=== PATIENT | female | born 2000 | race Caucasian/White ===

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

== ENCOUNTER 2022-06-14 15:03 | Outpatient (CLI) | payer BC, SELFPAY | END 2022-06-14 15:04 | disposition home or self-care (01) | PROVIDERS: PCP Family Medicine; Visit Provider Registered Nurse | DX: N94.6 Dysmenorrhea, unspecified (principal) | CPT/HCPCS: 84443 ==

== ENCOUNTER 2023-05-01 11:28 | Outpatient (CLI) | payer BC, SELFPAY ==
[2023-05-01 14:05] LABS: Chlamydia DNA Amplified* NOT DETECTED (No Detected); GC DNA Amplified* NOT DETECTED (No Detected)
== END 2023-05-01 11:29 | disposition home or self-care (01) ==
PROVIDERS: PCP Family Medicine; Visit Provider Registered Nurse
DX: Z11.3 Encounter for screening for infections with a predominantly sexual mode of transmission (principal)
CPT/HCPCS: 86592; 86703; 86803; 87340; 87491; 87591

== ENCOUNTER 2023-08-26 11:45 | Outpatient (CLI) | payer BC, SELFPAY | END 2023-08-26 11:46 | disposition home or self-care (01) | PROVIDERS: PCP Family Medicine; Visit Provider Family Medicine | DX: I10 Essential (primary) hypertension (principal) | CPT/HCPCS: 80053; 82043; 82570 ==